=== PATIENT | male | born 1940 | race Hispanic/Latino ===

== ENCOUNTER 2019-12-08 10:18 | Inpatient (IN) | payer OTHER ==
[~2019-12-08] VITALS: Ht 172.7 cm; Wt 72.6 kg
--- OUTSIDE RECORDS SUMMARY | 2019-12-08 10:20 | XMS REPORT ---
Author Author [facility] Address Unknown Phone Unavailable Care Team Providers Care Director Patient Financial Services Name Role Phone Unavailable Unavailable Payers Payer Name Policy Type Policy Number Effective Date Expiration Date Problems This patient has no known problems. Allergies, Adverse Reactions, Alerts Allergy Name Allergy Type Status Severity Reaction(s) Onset Date Inactive Date Treating Clinician Comments No Known Allergies DA Active U 2018-06-09 00:00:00 Medications This patient has no known medications.
[2019-12-08] MEDS ORDERED: SODIUM CHLORIDE 0.9% 1000ML 1,000 ML IV STA (10:43)
[2019-12-08 11:13] LABS: BASOPHILS % 0.1 % (0.0-1.0); HEMATOCRIT 42.9 % (38.2-49.6); HEMOGLOBIN 14.7 g/dL (14.0-18.0); LYMPHOCYTES % 4.6 % (18.0-39.1); MEAN CORPUSCULAR HEMOGLOBIN 29.3 pg (28-32); MEAN CORPUSCULAR HGB CONC 34.3 g/dL (31-35); MEAN CORPUSCULAR VOLUME 85.6 fL (81-99); MONOCYTES # (AUTO) 1.3 (0.2-0.8); MONOCYTES % 6.2 % (4.4-11.3); NEUTROPHILS # (AUTO) 18.4 (2.1-6.9); NEUTROPHILS % 88.4 % (38.7-80.0); PLATELET COUNT 141 x10e3/uL (140-360); RED BLOOD COUNT 5.01 x10e6/uL (4.3-5.7)
[2019-12-08 11:32] LABS: ALBUMIN 2.6 g/dL (3.5-5.0); ALBUMIN/GLOBULIN RATIO 0.4 (0.8-2.0); ANION GAP 20.1 mmol/L (8-16); CALCIUM 9.8 mg/dL (8.4-10.2); CREATININE, SERUM 2.09 mg/dL (0.72-1.25); POTASSIUM 4.1 mmol/L (3.5-5.1)
--- NOTE | 2019-12-08 11:37 | Diagnostic Imaging Report ---
EXAMINATION: CHEST SINGLE (PORTABLE) COMPARISON: None INDICATION: ^cough, multiple falls ^[id number] ^1100 DISCUSSION: Frontal view of the chest obtained at 1112 hours. HEART AND MEDIASTINUM: The heart is normal in size. The aorta is tortuous with calcifications of the arch. LINES: None. LUNGS: The lungs are well inflated and clear. No pneumonia or pulmonary edema. PLEURA: No pleural effusion or pneumothorax. BONES AND SOFT TISSUES: Degenerative changes of the spine. No evidence of fracture or dislocation. The soft tissues are normal. IMPRESSION: No acute traumatic pathology. No acute cardiopulmonary process. Signed by: Dr. Kusum Brandt MD on 12/08/2019 11:34 AM
[2019-12-08 11:39] LABS: CREATINE KINASE MB 2.2 ng/mL (0-5.0)
[2019-12-08 11:44] LABS: INR 1.14; PROTHROMBIN TIME 15.3 seconds (11.9-14.5)
[2019-12-08 11:45] LABS: PARTIAL THROMBOPLASTIN TIME 26.9 seconds (23.8-35.5)
--- NOTE | 2019-12-08 12:14 | Diagnostic Imaging Report ---
Examination: CT head without contrast Clinical Indication: Frequent falls. Technique: Transaxial noncontrast images from the skull base through the vertex were obtained. Sagittal and coronal reformatted images were done. Dose modulation, iterative reconstruction, and/or weight based adjustment of the mA/kV was utilized to reduce the radiation dose to as low as reasonably achievable. Comparison: None. Findings: Scalp: No abnormalities. Bones: Intact. No fractures. No blastic or lytic lesions. Brain sulci: Appropriate for patient's age. Ventricles: Normal in size and configuration. No hydrocephalus. . Extra-axial space: No abnormalities. Parenchyma: There are mild confluent areas of low-attenuation within subcortical and periventricular white matter, nonspecific, but could represent microvascular ischemic disease. No masses, hemorrhage, or acute or chronic cortical based vascular insults. Suprasellar region: No abnormalities. Craniocervical junction: The foramen magnum is patent. No Chiari one malformation. Incidental findings: Partial opacification of the bilateral frontal and maxillary sinuses. Mild inflammatory mucosal thickening of bilateral sphenoid and ethmoid air cells. Impression: 1. No acute intracranial finding. 2. Mild chronic microvascular ischemic change. Signed by: Dr. Joie Levin M.D. on 12/08/2019 12:10 PM
--- NOTE | 2019-12-08 12:15 | Diagnostic Imaging Report ---
Examination: CT CERVICAL SPINE WO CONTRAST HISTORY:Neck pain injury after fall. COMPARISON:None. TECHNIQUE: Multidetector helical axial images were obtained without contrast from the foramen magnum to T1. Coronal and sagittal reformatted images were done. Bone and soft tissue windows were evaluated. Dose modulation, iterative reconstruction, and/or weight based adjustment of the mA/kV was utilized to reduce the radiation dose to as low as reasonably achievable. FINDINGS: Alignment:Normal alignment with straightening of normal lordosis. Vertebrae: Normal height and density. No acute fracture, infection or neoplasm. Disc space heights: Normal height. Caliber of spinal canal: Developmentally normal. Posterior fossa and craniocervical junction: Foramen magnum patent. No Chiari 1 malformation. Soft tissues: Dense atherosclerotic calcification of the bilateral carotid bifurcation. Degenerative changes: Anterior osteophytes from C3 through T1. Bilateral facet arthropathy from C2 through C7 No disc herniation or canal stenosis. Visualized lung apices: No abnormalities. IMPRESSION: 1. No acute abnormalities. 2. Degenerative changes as above. Signed by: Dr. Joie Levin M.D. on 12/08/2019 12:12 PM
[2019-12-08 12:24] LABS: BILIRUBIN,URINE SMALL (NEGATIVE); CLARITY,URINE SL CLOUDY (CLEAR); COLOR,URINE YELLOW (YELLOW); KETONES,URINE 1+ (NEGATIVE); LEUKOCYTE ESTERASE ,URINE NEGATIVE (NEGATIVE); NITRITE,URINE NEGATIVE (NEGATIVE); PROTEIN,URINE DIPSTICK 2+ (NEGATIVE); URINE UROBILINOGEN 1 mg/dL (0.2 - 1)
[2019-12-08] MEDS ORDERED: ONDANSETRON HCL INJ 2MG/ML 2ML 2 MG/ML VIAL IV PRN (12:45)
[2019-12-08] MEDS: SODIUM CHLORIDE 0.9% 1000ML 1,000 ML IV SCH ×3 (13:07→20:31)
[2019-12-08 13:17] LABS: BACTERIA,URINE FEW /HPF; MUCUS,URINE FEW (RARE)
[2019-12-08] MEDS: CEFTRIAXONE SOD 1 GM/NS 50 ML 50 ML IV SCH (13:19)
[2019-12-08] MEDS ORDERED: FAMOTIDINE 20 MG/2 ML VIAL IV SCH (13:30)
[2019-12-08] MEDS ORDERED: ARICEPT5 MG PO (13:37)
[2019-12-08] MEDS ORDERED: ATORVASTATIN CA20 MG PO (13:37)
[2019-12-08] MEDS ORDERED: DEXTROSE 50% SYRINGE 50 ML IV PRN (13:45)
[2019-12-08] MEDS ORDERED: SIMVASTATIN20 MG PO (13:56)
[2019-12-08] MEDS ORDERED: LANTUS 3ML100 UNITS/ SQ (13:56)
--- NOTE | 2019-12-08 14:00 | NUR ---
Received patient from ER to room 297, he is in stable condition. at bedside. Iv line to left forearm is patent. Admission history and initial physical assessment completed and documented. Patient and oriented to room and policies. Call light within reach. Bed in the lowest position. Bed alarm on.
[2019-12-08 14:01] VITALS: BP 157/94
[2019-12-08 14:02] VITALS: BP 157/94
[2019-12-08 14:13] VITALS: BP 157/94
[2019-12-08] MEDS ORDERED: PNEUMOCOCCAL VACCINE POLYVALENT 23 MCG/0.5 ML VIAL IM SCH (14:14)
[2019-12-08] MEDS ORDERED: INFLUENZA VIRUS VAC SPLIT INJ 0.5 ML SYR IM SCH (14:14)
[2019-12-08] MEDS: INSULIN LISPRO 100 UNIT/1 ML 3ML VIAL SQ SCH ×3 (14:30→20:30)
[2019-12-08 16:44] VITALS: BP 116/65
[2019-12-08] MEDS ORDERED: ACETAMINOPHEN/CODEINE 300MG - 30MG TAB PO PRN (18:30)
[2019-12-08] MEDS ORDERED: ACETAMINOPHEN 325 MG TAB PO PRN (18:30)
[2019-12-08] MEDS ORDERED: HYDRALAZINE HCL 20 MG/ML VIAL IV PRN (18:30)
--- NOTE | 2019-12-08 19:05 | NUR ---
Bedside shift report given to oncoming nurse. Patient is resting in bed. No acute distress noted. Call light within reach. Bed in the lowest position. Bed alarm on.
[2019-12-08 19:10] LABS: CREATINE KINASE MB 2.4 ng/mL (0-5.0)
[2019-12-08 20:00] VITALS: BP 115/75
[2019-12-08] MEDS: DONEPEZIL HCL 5 MG TAB PO SCH (20:29)
[2019-12-08] MEDS: SIMVASTATIN 20 MG TAB PO SCH (20:29)
[2019-12-08 22:15] VITALS: BP 115/75
[2019-12-09] VITALS (11 sets, daily range): BP systolic 109–181; BP diastolic 62–87
[2019-12-09] MEDS: CEFTRIAXONE SOD 1 GM/NS 50 ML 50 ML IV SCH ×2 (01:05→12:55)
[2019-12-09 03:39] LABS: HEMATOCRIT 37.9 % (38.2-49.6); HEMOGLOBIN 12.9 g/dL (14.0-18.0); LYMPHOCYTES # (AUTO) 1.5 (1.0-3.2); LYMPHOCYTES % 7.1 % (18.0-39.1); MEAN CORPUSCULAR HEMOGLOBIN 29.3 pg (28-32); MEAN CORPUSCULAR VOLUME 86.1 fL (81-99); MONOCYTES # (AUTO) 1.3 (0.2-0.8); MONOCYTES % 6.4 % (4.4-11.3); NEUTROPHILS # (AUTO) 18.1 (2.1-6.9); PLATELET COUNT 160 x10e3/uL (140-360); RED CELL DISTRIBUTION WIDTH 11.9 % (11.7-14.4)
[2019-12-09 04:07] LABS: CREATINE KINASE MB 3.6 ng/mL (0-5.0)
[2019-12-09 04:29] LABS: ALBUMIN 2.2 g/dL (3.5-5.0); ALBUMIN/GLOBULIN RATIO 0.5 (0.8-2.0); CREATININE, SERUM 1.53 mg/dL (0.72-1.25)
[2019-12-09 04:31] LABS: CALCIUM 8.2 mg/dL (8.4-10.2)
[2019-12-09 04:49] LABS: THYROID STIMULATING HORMONE 1.225 uIU/mL (0.350-4.940)
[2019-12-09 07:06] LABS: CREATINE KINASE MB 3.7 ng/mL (0-5.0)
[2019-12-09] MEDS: INSULIN LISPRO 100 UNIT/1 ML 3ML VIAL SQ SCH ×4 (07:30→20:14)
--- NOTE | 2019-12-09 07:35 | NUR ---
PATIENT IN BED RESTING WITH EYES CLOSED, NO DISTRESS NOTED. IV FLUID INFUSING ORDERED. BED IN LOWER POSITION, CALL LIGHT AT REACH.
[2019-12-09] MEDS: FAMOTIDINE 20 MG TAB PO SCH ×2 (07:45→16:30)
[2019-12-09] MEDS: MEGACE 400MG/ 10ML CUP PO SCH (09:14)
--- NOTE | 2019-12-09 09:48 | NUR ---
Nutrition Screen Note RD Recommendation for Physician: -Continue current diet per MD. -Encouraged intake of ONS. Plan of Care: RD following, monitoring for tolerance and adequacy. Glucerna TID- ordered by MD. Nutrition reason for involvement: (MD Consult-malnutrition) Primary Diagnose(s): Dehydration, falls PMH: DM Ht:68 in Wt: 160 lb BMI: 24.3kg/m2 IBW:[address] Assessment: (12/08): 79 YOM admitted for dehydration. Received consult for possible malnutrition. Spoke with the pt who reported his appetite has been poor for 1 week and he denied any recent unintentional weight loss. Pt denied N/V/C/D/chewing or swallowing issues as well as any food allergies. Pt appeared well-nourished. There are no past weights in EMR. Encouraged the pt to consume Glucerna supplement as tolerated, he reported he likes them. He also reported he would like to be woken up to receive his meals, he stated sometimes he is sleeping and when he wakes up to eat his meal, the meal is cold. He has reported this to staff. Reported to pt that microwaves should be available if he would like his food warmed up. Chart reviewed. Labs and meds reviewed. There is only on meal assessment percentage in FS-it is 50%. Will continue to monitor. Current Diet: 2400 ADA diet Malnutrition Evaluation (12/08) The patient does not meet criteria for a specified degree of malnutrition at this time. Will re-evaluate at follow-up as appropriate. Energy intake: <50% of estimated energy requirements for >5 days Weight loss: -pt reported no weight loss Fat loss: none Muscle loss: none Supporting Evidence: Fluid accumulation, unable to evaluate Functional Status: unable to evaluate Diet Education Needs Assessment: Diet education not indicated. Diet Adequacy: Not meeting calorie needs, Not meeting protein needs-reports of poor appetite, 50% of his meal consumed per FS, and MD ordered Glucerna supplement TID Nutrition Care Level: mod Signed: Lucille Song RD, LD
--- NOTE | 2019-12-09 11:10 | NUR ---
PATIENT NOT FOLLOWING DIRECTIONS. ASSISTED TO THE RESTROOM, REFUSE STAFF TO STAY CLOSE. RED CORD GIVEN TO PATIENT TO CALL WHEN FINISHED. HE DID NOT CALL AND JUST GOT UP AND WALKED OUT BY HIMSELF. ASSISTED BACK TO BED, CALL LIGHT AT REACH. BED ALARM ACTIVATED.
--- NOTE | 2019-12-09 12:13 | NUR ---
LEFT FACILITIES IN NETWORK LIST IN ROOM, CALLED [facility] [phone] LEFT VOICE MAIL TO RETURN CALL TO DISCUSS SNF OPTIONS.
[2019-12-09] MEDS: LORATADINE 10 MG TAB PO SCH (12:55)
--- NOTE | 2019-12-09 13:41 | Consultation ---
DATE OF CONSULTATION: Neurology Consultation HISTORY OF PRESENT ILLNESS: The patient is an 79-year-old gentleman, who comes to my attention for worsening dementia, weakness, and falls. The patient's is at the bedside. The patient is also unable to give any past medical history due to his clinical status. States in the last week, the patient has been eating less, taking his medication less, sleeping basically 20-24 hours a day, getting up and falling 7 times in 7 days and remaining delirious and confused with diminished responsiveness and cognitive status. REVIEW OF SYSTEMS: As per , increased fatigue, lethargy, decreased appetite, confusion, gait disturbance, weakness, etc., but otherwise the patient is not able to provide information. PHYSICAL EXAMINATION: VITAL SIGNS: At this time, temperature is 97.2, heart rate is 81, and blood pressure is 112/84. On admission, he was mildly tachy and blood pressure 181/87. GENERAL: The patient is arousable. He is awake. He is oriented x1. He knows himself, does not know the date or the location. Not sure about his situation. HEENT: His extraocular muscles intact. Pupils are reactive. His face is symmetric. He has no ptosis. No nuchal rigidity on exam. Trachea is midline. CARDIOVASCULAR: Regular rate and rhythm. PULMONARY: Clear. ABDOMEN: Soft and nontender. EXTREMITIES: He is able to move upper and lower extremities at least 4/5. Reflexes are diminished and toes are upgoing bilaterally. There is no apparent ataxia on exam. ASSESSMENT AND PLAN: I am seeing the patient for delirium, decompensation, and dementia. The patient does have a white blood cell count of 21. His other labs are relatively reassuring. His kidney function is little . His sodium is 133. His other labs, glucose, he is hyperglycemic. His A1c is 8.9. Liver function tests, largely normal. UA may be a little dirty with white blood cells, but no leukocyte esterase in the urine. dementia. CT scan is reassuring. Exam is nonfocal likely progression of chronic delirium with decompensation and possible dehydration secondary to decreased p.o. intake and poorly controlled diabetes. The patient's family case management assistance to perform placement. The patient is not able to be taking care of adequately at home. MD CORRINA MOSER/IVY /[id number]
--- NOTE | 2019-12-09 14:41 | NUR ---
WOUND CARE NURSE INITIAL EVALUATION. 79 YEAR OLD MALE ADMITTED TO [facility] WITH DX OF DEHYDRATION, LEUKOCYTOSIS AND RENAL INSUFFICIENCY. HEAD TO TOE SKIN ASSESSMENT PERFORMED TODAY. PT PRESENTS WITH HEALING ABRASIONS TO BILATERAL ELBOWS. NO S/S OF INFECTION. NO OTHER AREAS OF CONCERN NOTED TODAY. LABS: WBC: 21.01 HGBA1C: 8.9 GLUCOSE: 258 URINE AND BLOOD CX RESULTS ARE PENDING AT THIS TIME. RECOMMENDATIONS: REPOSITION PT EVERY TWO HOURS AND PRN. CONTINUE WITH ALTERNATING LOW AIR LOSS MATTRESS. LEAVE HEALING ABRASIONS TO BILATERAL ELBOWS OPEN TO AIR AND MONITOR DAILY. THANKS FOR THIS CONSULTATION. Addendum: 12/09/19 at 1453 by Annabel Castellanos RN Amended: Links added.
--- NOTE | 2019-12-09 14:51 | NUR ---
PATIENT OFF UNIT TO RADIOLOGY.
--- NOTE | 2019-12-09 15:10 | NUR ---
PATIENT BACK TO UNIT FROM RADIOLOGY.
--- NOTE | 2019-12-09 15:39 | Diagnostic Imaging Report ---
EXAM: CT Chest, Abdomen and Pelvis WITHOUT intravenous contrast INDICATION: Pneumonia, fall COMPARISON: None. TECHNIQUE: The chest, abdomen and pelvis were scanned utilizing a multidetector helical scanner from the thoracic inlet to the pubic symphysis without administration of IV contrast. Coronal and sagittal reformations were obtained. IV CONTRAST: None ORAL CONTRAST: Water COMPLICATIONS: None RADIATION DOSE: Total DLP: (DLP x 0.015 x size factor) mGy*cm Dose modulation, iterative reconstruction, and/or weight based adjustment of the mA/kV was utilized to reduce the radiation dose to as low as reasonably achievable. FINDINGS: LINES/ TUBES: None. LUNGS AND AIRWAYS: The central airways are patent. Scattered multifocal peripheral ground glass nodularity and tree-in-bud nodularity most notably at the right lower lobe, lingula and left lower lobe mild diffuse bronchial wall thickening. No focal consolidation. No pulmonary edema. PLEURA: The pleural spaces are clear. HEART AND MEDIASTINUM: The thyroid gland is normal. No mediastinal, hilar or axillary lymphadenopathy. The heart is normal in size.. There is no pericardial effusion. Diffuse atherosclerotic calcifications involve the aorta, proximal great vessels, and coronary arteries. HEPATOBILIARY: No focal liver lesions. No biliary ductal dilation. The gallbladder is distended, measuring up to 4.6 cm in diameter. Dependent calcified gallstones. No CT evidence of cholecystitis. SPLEEN: No splenomegaly. PANCREAS: No focal masses or ductal dilatation. ADRENALS: Nodular thickening of both adrenal glands without focal discrete nodule. KIDNEYS/URETERS: A 1.6 cm exophytic lesion at the upper pole of left kidney and 2.7 cm exophytic lesion at the midpole of the left kidney are indeterminate by density (25-30 HU) and may represent dense cysts versus renal neoplasm. 3 mm left upper pole renal calculus. No hydronephrosis or hydroureter. Mild right greater than left nonspecific perinephric fat stranding. PELVIC ORGANS/BLADDER: No bladder mass or calculi. Mild bladder wall thickening. The prostate is enlarged, measuring up to 5.1 x 5.4 x 5.7 cm (TR x AP x SI) with volume estimate of 81cc. PERITONEUM / RETROPERITONEUM: No free air or fluid. LYMPH NODES: No lymphadenopathy. VESSELS: Diffuse atherosclerotic calcifications of the nonaneurysmal abdominal aorta and major branches. GI TRACT: No abnormal bowel thickening. No bowel obstruction. Normal appendix. BONES AND SOFT TISSUES: No acute osseous injury. No suspicious lytic or blastic lesions. IMPRESSION: Scattered multifocal peripheral groundglass nodularity and tree-in-bud nodularity most notably in the right lower lobe, lingula and left lower lobe are likely infectious/inflammatory in etiology and may be related to aspiration. Cholelithiasis of the mildly distended gallbladder. No specific CT evidence of cholecystitis. Exophytic lesions of the upper pole (1.6cm) and mid pole of the left kidney (2.7cm) are indeterminate by density on this noncontrast CT and could represent dense cysts versus renal neoplasm. Recommend follow-up examination with renal mass protocol CT or MRI for further evaluation. Mild bladder wall thickening can be seen in the setting of cystitis. Prostatomegaly to 5.1 x 5.4 x 5.7 cm with volume estimate of 81 cc. Signed by: Johnny Ocampo MD on 12/09/2019 3:37 PM
--- NOTE | 2019-12-09 16:00 | NUR ---
SPOKE WITH FINANCIAL PLANNING ASSISTANT REGARDING ABNORMAL LAB RESULT. NO NEW ORDER RECEIVED.
[2019-12-09] MEDS ORDERED: GUAIFENESIN 600MG/DEXTROMETHORPHAN 30MG TABSR PO PRN (17:30)
[2019-12-09] MEDS ORDERED: ALBUTEROL/IPRATROPIUM 3 ML NEB NEB PRN (17:30)
[2019-12-09] MEDS: AZITHROMYCIN 500MG/NS 250 ML 250 ML IV SCH (18:42)
--- NOTE | 2019-12-09 19:10 | NUR ---
BEDSIDE SHIFT REPORT GIVEN TO ON COMING NURSE.
[2019-12-09] MEDS: SIMVASTATIN 20 MG TAB PO SCH (20:19)
[2019-12-09] MEDS: DONEPEZIL HCL 5 MG TAB PO SCH (20:19)
[2019-12-09] MEDS: ALBUTEROL/IPRATROPIUM 3 ML NEB NEB SCH (22:10)
[2019-12-10] VITALS (8 sets, daily range): BP systolic 98–155; BP diastolic 52–75
[2019-12-10] MEDS: CEFTRIAXONE SOD 1 GM/NS 50 ML 50 ML IV SCH ×2 (01:00→13:33)
[2019-12-10] MEDS: ALBUTEROL/IPRATROPIUM 3 ML NEB NEB SCH ×4 (01:02→19:48)
[2019-12-10 06:15] LABS: BASOPHILS % 0.1 % (0.0-1.0); HEMATOCRIT 34.7 % (38.2-49.6); HEMOGLOBIN 11.5 g/dL (14.0-18.0); LYMPHOCYTES # (AUTO) 1.5 (1.0-3.2); LYMPHOCYTES % 11.1 % (18.0-39.1); MEAN CORPUSCULAR HEMOGLOBIN 29.1 pg (28-32); MEAN CORPUSCULAR HGB CONC 33.1 g/dL (31-35); MEAN CORPUSCULAR VOLUME 87.8 fL (81-99); MONOCYTES # (AUTO) 1.1 (0.2-0.8); MONOCYTES % 7.9 % (4.4-11.3); NEUTROPHILS # (AUTO) 10.7 (2.1-6.9); NEUTROPHILS % 80.3 % (38.7-80.0); PLATELET COUNT 158 x10e3/uL (140-360); RED BLOOD COUNT 3.95 x10e6/uL (4.3-5.7)
[2019-12-10] MEDS ORDERED: NON-FORMULARY MEDICATION (Insulin Glargine (Lantus 3ML Pen) 50 UNITS) SQ SCH (09:00)
[2019-12-10] MEDS: INSULIN GLARGINE 100 UNITS/ML VIAL SQ SCH (09:00)
[2019-12-10] MEDS: LORATADINE 10 MG TAB PO SCH (09:32)
[2019-12-10] MEDS: MEGACE 400MG/ 10ML CUP PO SCH (09:32)
[2019-12-10] MEDS: FAMOTIDINE 20 MG TAB PO SCH ×2 (09:33→17:24)
[2019-12-10] MEDS: INSULIN LISPRO 100 UNIT/1 ML 3ML VIAL SQ SCH ×4 (09:43→20:43)
--- NOTE | 2019-12-10 13:21 | Consultation ---
DATE OF CONSULTATION: 12/10/2019 Urology Consultation REASON FOR CONSULTATION: Renal lesions. HISTORY OF PRESENT ILLNESS: Chepe Lowry is an 79-year-old man, who has had progressive Alzheimer disease for the last nine years. The patient was admitted with sepsis and positive blood cultures that were present on admission. Urological consultation was sought due to the fact that the patient had renal lesions noted on CT. The patient has a diaper on for unknown reasons, presumably because he forgets to go and void as needed. He has belligerence with his dementia and his is having an extremely difficult time handling him, feeding him and he has had numerous falls and needs placement into a facility. He has never seen a urologist. He has never had urolithiasis nor urinary tract infections. PAST MEDICAL AND SURGICAL HISTORY: 1. Diabetes mellitus. 2. Hypertension. 3. Hypercholesterolemia. 4. Alzheimer disease. ALLERGIES: NONE KNOWN. CURRENT MEDICATIONS: Please refer to the MAR. 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 He smoked up to two to two and half packs per day, but he does not smoke any longer. He has a very supportive at the bedside. FAMILY HISTORY: Noncontributory to the active urological problems. REVIEW OF SYSTEMS: Consistent with above history of present illness. PAST MEDICAL HISTORY: Includes current admission for pneumonia. Positive for possible pneumonia. PHYSICAL EXAMINATION: GENERAL: Elderly male, lying in bed, in no apparent distress. VITAL SIGNS: He is currently afebrile. Vital signs currently stable. ABDOMEN: Soft, nondistended, nontender without costovertebral angle tenderness. Kidneys not palpable without hepatosplenomegaly. No obvious evidence of hernia. GENITOURINARY: Testes descended bilaterally. Testes and epididymides bilaterally palpably normal. The patient has a normal uncircumcised male phallus with normal meatus without any lesion. RECTAL: Digital rectal examination is deferred at the present time. For the remaining physical examination systems, please refer to the admission history and physical on the chart. LABORATORY STUDIES: Blood cultures are positive x2. Urine culture is negative. White blood cell count is 13,370, hemoglobin 11.5, and platelets 158,000. Sodium is low at 133, creatinine is 1.53, was higher than that at 2.09 upon admission. Calcium is low at 8.2. Urinalysis significant for 11-20 RBCs, 6-10 WBCs, protein urine glycosuria. CT scan of the abdomen and pelvis revealed cholelithiasis with mildly distended gallbladder. Two exophytic lesions in the left kidney 1.6 and 2.7 cm and there was a 3 mm left upper pole stone without any hydronephrosis. The patient had enlarged prostate measuring [address] ASSESSMENT: 1. Left nephrolithiasis. 2. Left renal lesions. 3. Benign prostatic hyperplasia. 4. Gallstones. 5. Leukocytosis. 6. Anemia. 7. Hyponatremia. 8. Presumably acute renal failure. 9. Hypercalcemia. 10. Microhematuria. 11. Urinary tract infection versus pyuria with negative culture. 12. Proteinuria. 13. Glycosuria. PLAN: 1. I will order a renal ultrasound to follow up on the lesions. 2. Discharge planning per primary team. 3. Follow up in the office in about a month following discharge from the hospital. 4. Ongoing urological followup. 5. Defer the hematological and electrolyte abnormalities to the primary team. Thank you much for involving us in care of your patient. We will be happy to follow along with you as well as an outpatient. Adarsh MD [place]/MODL /[id number] cc: Khadar Lopez DO
--- NOTE | 2019-12-10 13:30 | NUR ---
addiction social worker , correctional casework specialist spoke with pt .
--- NOTE | 2019-12-10 15:41 | NUR ---
awake and calm no acute complains PHYSICAL EXAMINATION: VITAL SIGNS: 96.8 113 142/68 GENERAL: He is awake. He is oriented x1. He knows himself, does not know the date or the location. Not sure about his situation. HEENT: His extraocular muscles intact. Pupils are reactive. His face is symmetric. He has no ptosis. No nuchal rigidity on exam. Trachea is midline. CARDIOVASCULAR: Regular rate and rhythm. PULMONARY: Clear. ABDOMEN: Soft and nontender. EXTREMITIES: He is able to move upper and lower extremities at least 4/5. Reflexes are diminished and toes are upgoing bilaterally. There is no apparent ataxia on exam. ASSESSMENT AND PLAN: I am seeing the patient for delirium, decompensation, and dementia. hx of dementia w/ reasurring diagnostics dementia w decompensation and possible dehydration secondary to decreased p.o. intake and poorly controlled diabetes. supportiv ecare and placement outpt eeg and neurocog workup
--- NOTE | 2019-12-10 16:06 | NUR ---
CALLED [facility] [phone] AND SPOKE WITH LO. SHE WAS ABLE TO LET ME KNOW THE PT DOES NOT HAVE C[facility] BENEFITS [facility]OUGH [facility], ONLY THE SKILLED PORTION FOR ABX AND THERAPY TREATMENTS. (WHICH IS COVERED AT 100%). FOR SNF FACILITIES THE ONES IN NETWORK FOR OUR ARE[facility] ARE [facility], [facility], [facility], [facility], [facility], [facility], [facility] AND [facility]. IF THE PT REQUIRES CARE [facility]ORY CARE [facility] BUT THEY WILL LOOSE THEIR USFHP. CALLED TO TELL HER ALL THIS INFORMATION, LEFT VOICE MAIL AND ALERTED CM TO SITUATION.
--- NOTE | 2019-12-10 16:28 | Diagnostic Imaging Report ---
HISTORY: ^EVALUATE L RENAL MASSES AND COMPARE TO CT ^[id number] ^1510 COMPARISON: CT 12/09/2019. TECHNIQUE: Grayscale and color spectral Doppler ultrasound of the kidneys and bladder. FINDINGS: The right kidney measures 11.5 x 5.6 x 5.2 cm. Cortical thickness measures 1.4 cm. No sonographically evident mass or hydronephrosis. Renal artery and vein are patent. The left kidney measures 12.6 x 5.5 x 4.7 cm. Cortical thickness measures 1.4 cm. No sonographically evident mass or hydronephrosis. Multiple subcentimeter echogenic likely nonobstructing stones. Upper pole exophytic 2.9 x 1.2 x 1.7 cm hypoechoic/anechoic lesion and mid pole 2.2 x 2.5 x 2.8 cm anechoic lesion. Renal artery and vein are patent. Bladder: Unremarkable. Enlarged prostate. IMPRESSION : 1. Left renal hypoechoic/anechoic lesions corresponding to those seen on the prior CT are incompletely evaluated and may represent cysts. However, neoplasm cannot be excluded. Recommend follow-up examination with renal mass protocol CT or MRI for further evaluation. 2. Nonobstructing left renal stones. Signed by: Jens Kimble MD on 12/10/2019 4:25 PM
[2019-12-10] MEDS: AZITHROMYCIN 500MG/NS 250 ML 250 ML IV SCH (17:24)
--- NOTE | 2019-12-10 19:30 | NUR ---
Report given to oncoming nurse, walking rounds complete. Pt stable at this time.
--- NOTE | 2019-12-10 20:13 | NUR ---
Prince Duffy ordered to d/c tele. Patient refused to place it on.
[2019-12-10] MEDS: DONEPEZIL HCL 5 MG TAB PO SCH (20:42)
[2019-12-10] MEDS: SIMVASTATIN 20 MG TAB PO SCH (20:42)
[2019-12-11] VITALS (8 sets, daily range): BP systolic 105–149; BP diastolic 53–70
[2019-12-11] MEDS: CEFTRIAXONE SOD 1 GM/NS 50 ML 50 ML IV SCH ×2 (00:33→12:39)
[2019-12-11] MEDS: ALBUTEROL/IPRATROPIUM 3 ML NEB NEB SCH ×5 (01:35→23:30)
[2019-12-11 06:09] LABS: BASOPHILS % 0.2 % (0.0-1.0); EOSINOPHILS % 0.3 % (0.0-6.0); HEMATOCRIT 34.9 % (38.2-49.6); HEMOGLOBIN 11.8 g/dL (14.0-18.0); LYMPHOCYTES # (AUTO) 1.3 (1.0-3.2); LYMPHOCYTES % 11.6 % (18.0-39.1); MEAN CORPUSCULAR HEMOGLOBIN 29.3 pg (28-32); MEAN CORPUSCULAR HGB CONC 33.8 g/dL (31-35); MEAN CORPUSCULAR VOLUME 86.6 fL (81-99); MONOCYTES % 8.7 % (4.4-11.3); NEUTROPHILS # (AUTO) 8.7 (2.1-6.9); NEUTROPHILS % 78.7 % (38.7-80.0); PLATELET COUNT 160 x10e3/uL (140-360); RED BLOOD COUNT 4.03 x10e6/uL (4.3-5.7); RED CELL DISTRIBUTION WIDTH 12.1 % (11.7-14.4)
--- NOTE | 2019-12-11 06:19 | NUR ---
Dr. Damaris Hernandez notified of this consultation.
[2019-12-11 06:32] LABS: ANION GAP 13.5 mmol/L (8-16); CALCIUM 8.3 mg/dL (8.4-10.2); CREATININE, SERUM 1.29 mg/dL (0.72-1.25); MAGNESIUM 1.5 MG/DL (1.3-2.1); PHOSPHORUS 2.5 MG/DL (2.3-4.7); POTASSIUM 3.5 mmol/L (3.5-5.1)
--- NOTE | 2019-12-11 07:00 | NUR ---
received bedside report. pt is sleeping, no s/s of distress. call light within reach and bed alarm is on
[2019-12-11] MEDS: INSULIN LISPRO 100 UNIT/1 ML 3ML VIAL SQ SCH ×4 (07:30→20:32)
[2019-12-11] MEDS: INSULIN GLARGINE 100 UNITS/ML VIAL SQ SCH (09:00)
[2019-12-11] MEDS: MEGACE 400MG/ 10ML CUP PO SCH (09:08)
[2019-12-11] MEDS: LORATADINE 10 MG TAB PO SCH (09:09)
[2019-12-11] MEDS: FAMOTIDINE 20 MG TAB PO SCH ×2 (09:09→17:10)
--- NOTE | 2019-12-11 10:33 | Consultation ---
DATE OF CONSULTATION: Pulmonary Critical Care Consultation CHIEF COMPLAINT: Malaise and frequent falling. HISTORY OF PRESENT ILLNESS: The patient is an 79-year-old man. He came to the emergency department because of multiple falls and decreased appetite. He also had generalized weakness. He denies fevers. He did have some mild cough. He was seen in the ER and found to have an elevated blood sugar of 297 along with an elevated white blood cell count. The patient received IV fluids along with IV antibiotics. He reports some improvement. PAST MEDICAL HISTORY: 1. Organic brain syndrome. 2. Diabetes. PAST SURGICAL HISTORY: Not obtainable. FAMILY HISTORY: History of diabetes and cardiac disease. SOCIAL HISTORY: The patient quit smoking over 25 years ago. He quit drinking many, many years ago. ALLERGIES: THERE ARE NO KNOWN DRUG ALLERGIES. REVIEW OF SYSTEMS: The patient is afebrile. The patient has no headache. He has no neck pain. He does report some cough. He denies chest pain or dyspnea. He is not having abdominal pain. There is no nausea or vomiting. He has no leg edema. He does have some confusion, but this apparently is baseline. PHYSICAL EXAMINATION: VITAL SIGNS: Blood pressure is 149/70 and the saturation is 97% on room air. The pulse is 80. HEENT: No facial swelling or erythema. CARDIAC: Regular rate and rhythm with a normal S1, S2. LUNGS: Auscultation of lungs reveals clear breath sounds bilaterally. There is no wheezing. ABDOMEN: Soft, nontender. There is no rebound or guarding. EXTREMITIES: No leg edema or calf tenderness. There is no cyanosis clubbing. SKIN: No rashes. NEUROLOGIC: Some confusion, but no focal abnormalities. LABORATORY DATA: White blood cell count is 11, hemoglobin is 11.8, and the platelet count is 160. The BUN to creatinine ratio is 19 to 1.3. The blood sugar is 175-215. Urinalysis shows 6-10 white blood cells. RADIOGRAPHIC DATA: CT scan of the chest shows scattered multifocal peripheral ground-glass nodularity and tree-in-bud nodularity mostly in the right lower lobe. IMPRESSION: 1. Aspiration pneumonia with sepsis, present on admission. 2. Diabetes, out of control. 3. Metabolic encephalopathy. 4. Renal abnormality of unclear etiology. PLAN: 1. Continue current IV antibiotics. 2. Monitor and control blood sugars. 3. Neurology evaluation. 4. Speech therapy evaluation. 5. Physical therapy. MD MARNIE Gonzalez/IVY /[id number]
--- NOTE | 2019-12-11 14:10 | NUR ---
SPOKE WITH ABOUT CONVERSATIONS YESTERDAY, ALL WE CAN SET UP AT THIS TIME IS THE SHORT TERM SKILLED STAY, EDUCATED HER THAT SHE [facility] BEN[facility] SO THAT HE CAN GET GROUP HOME CARE. SHE SIGNED CHOICE FOR [facility], FILED IN CHART, COMPLETED PASRR AND FAXED TO FACILITY. COMPLETED RTF AND PUT ON PACKET AT NURSES STATION.
--- NOTE | 2019-12-11 19:23 | NUR ---
Received change of shift report from AM nurse. Walking rounds completed.
[2019-12-11] MEDS: AZITHROMYCIN 500MG/NS 250 ML 250 ML IV SCH (19:24)
[2019-12-11] MEDS: DONEPEZIL HCL 5 MG TAB PO SCH (20:32)
[2019-12-11] MEDS: SIMVASTATIN 20 MG TAB PO SCH (20:32)
[2019-12-12] VITALS: BP 137/63
[2019-12-12] MEDS: CEFTRIAXONE SOD 1 GM/NS 50 ML 50 ML IV SCH ×2 (00:15→13:00)
[2019-12-12 04:00] VITALS: BP 110/55
--- NOTE | 2019-12-12 04:24 | NUR ---
Patient resting quitly with no c/o at this time. Continue monitor.
--- NOTE | 2019-12-12 04:55 | NUR ---
Restarted IV 20G to left hand x1 stick. Patient pulled out prior IV. Patient tolerated well. Wrapped with kerlex.
[2019-12-12 06:02] LABS: BASOPHILS % 0.1 % (0.0-1.0); EOSINOPHILS % 0.1 % (0.0-6.0); HEMATOCRIT 30.8 % (38.2-49.6); HEMOGLOBIN 10.4 g/dL (14.0-18.0); LYMPHOCYTES # (AUTO) 1.1 (1.0-3.2); LYMPHOCYTES % 10.2 % (18.0-39.1); MEAN CORPUSCULAR HEMOGLOBIN 29.6 pg (28-32); MEAN CORPUSCULAR HGB CONC 33.8 g/dL (31-35); MEAN CORPUSCULAR VOLUME 87.7 fL (81-99); MONOCYTES % 9.1 % (4.4-11.3); NEUTROPHILS # (AUTO) 8.4 (2.1-6.9); PLATELET COUNT 163 x10e3/uL (140-360); RED BLOOD COUNT 3.51 x10e6/uL (4.3-5.7); RED CELL DISTRIBUTION WIDTH 12.3 % (11.7-14.4)
[2019-12-12 06:35] LABS: ALBUMIN/GLOBULIN RATIO 0.5 (0.8-2.0); ANION GAP 11.5 mmol/L (8-16); CALCIUM 8.2 mg/dL (8.4-10.2); CREATININE, SERUM 1.58 mg/dL (0.72-1.25); POTASSIUM 3.5 mmol/L (3.5-5.1)
[2019-12-12] MEDS: ALBUTEROL/IPRATROPIUM 3 ML NEB NEB SCH ×2 (07:01→13:28)
[2019-12-12 08:00] VITALS: BP 133/59
--- NOTE | 2019-12-12 08:37 | NUR ---
awake and calm no acute complains PHYSICAL EXAMINATION: VITAL SIGNS: 97.3 95 137/64 GENERAL: He is awake. He is oriented x1. He knows himself, does not know the date or the location. Not sure about his situation. HEENT: His extraocular muscles intact. Pupils are reactive. His face is symmetric. He has no ptosis. No nuchal rigidity on exam. Trachea is midline. CARDIOVASCULAR: Regular rate and rhythm. PULMONARY: Clear. ABDOMEN: Soft and nontender. EXTREMITIES: He is able to move upper and lower extremities at least 4/5. Reflexes are diminished and toes are upgoing bilaterally. There is no apparent ataxia on exam. ASSESSMENT AND PLAN: I am seeing the patient for delirium, decompensation, and dementia. hx of dementia w/ reasurring diagnostics dementia w decompensation and possible dehydration secondary to decreased p.o. intake and poorly controlled diabetes. supportiv ecare and placement outpt eeg and neurocog workup
[2019-12-12] MEDS: LORATADINE 10 MG TAB PO SCH (08:56)
[2019-12-12] MEDS: MEGACE 400MG/ 10ML CUP PO SCH (08:56)
[2019-12-12] MEDS: FAMOTIDINE 20 MG TAB PO SCH (08:56)
[2019-12-12 09:02] VITALS: BP 133/59
--- NOTE | 2019-12-12 10:35 | NUR ---
USP FACILITY DISCHARGE INFORMATION PATIENT HAS BEEN ACCEPTED TO: NAME: [facility] ADDRESS:[id number] [facility] ACCEPTING PAPER BALING MACHINE OPERATOR: BONNY DAILY MD: MIR ROOM: 109 NURSE CALL REPORT TO: [phone] IMM SIGNED AND OBTAINED (if applicable): NA THE FOLLOWING DOCUMENTS MUST ACCOMPANY PATIENT FOR TRANSFER: COPIED CHART: PACKET
--- NOTE | 2019-12-12 10:36 | NUR ---
SPOKE WITH [facility] REP THAT CALLED ME BACK AND GAVE INSTRUCTIONS FOR TO FOLLOW TO GET PT QUALIFIED FOR BENEFITS CALL MAIN NUMBER AT [phone] GET AN FOOD PREPARER AND ASK FOR ELIGIBILITY AND BENEFITS ANS HAVE RUN INFORMATION VIA PHONE TO GET QUALIFIED. LEFT TYPED OUT INSTRUCTIONS IN ROOM AND CALLED AND LET KNOW.
[2019-12-12] MEDS: INSULIN GLARGINE 100 UNITS/ML VIAL SQ SCH (10:54)
[2019-12-12] MEDS: INSULIN LISPRO 100 UNIT/1 ML 3ML VIAL SQ SCH ×2 (10:54→13:01)
[2019-12-12] MEDS ORDERED: CEFDINIR300 MG PO (11:54)
[2019-12-12] MEDS ORDERED: LORATADINE10 MG PO (11:54)
[2019-12-12] MEDS ORDERED: ZITHROMAX500 MG PO (11:54)
[2019-12-12] MEDS ORDERED: Megestrol Acetate PO (11:54)
[2019-12-12] MEDS ORDERED: MUCINEX DM ER1 EACH PO (11:54)
[2019-12-12 11:58] VITALS: BP 138/70
[2019-12-12] MEDS ORDERED: SODIUM CHLORIDE 0.9% 500ML 500 ML IV ONE (12:00)
--- NOTE | 2019-12-12 12:00 | NUR ---
report called to [facility] AT [facility]
--- NOTE | 2019-12-12 12:07 | Progress Note ---
DATE: SUBJECTIVE: The patient feels much better. He is more alert and is conversing well. He does not complain of cough or congestion. PHYSICAL EXAMINATION: VITAL SIGNS: The patient is afebrile. The blood pressure is 133/59 and the pulse is 104. Saturation is 95%. HEENT: Shows no facial swelling or erythema. CARDIAC: Reveals a regular rate and rhythm with normal S1 and S2. LUNGS: Auscultation of lungs reveals rhonchorous breath sounds bilaterally. There is no wheezing. ABDOMEN: Soft and nontender. There is no rebound or guarding. EXTREMITIES: Shows no leg edema or calf tenderness. There is no cyanosis or clubbing. SKIN: Shows no rashes. NEUROLOGICAL: Shows no focal abnormalities. LABORATORY DATA: White blood cell count is 10.5 and hemoglobin is 10.4. The platelet count is 163. BUN to creatinine ratio is 20 to 1.59. The blood sugar is 200 to 300. Albumin is 2.0. IMPRESSION: 1. Acute kidney injury with increased creatinine of 1.58 today. 2. Aspiration pneumonia with sepsis, present on admission. 3. Diabetes out of control. 4. Metabolic encephalopathy. 5. Possible renal mass. PLAN: 1. Continue current antibiotics. 2. IV hydration and repeat creatinine. 3. Continue to monitor and control blood sugars. 4. Out of bed as tolerated. Sharad Hernandez MD [facility] /[id number]
[2019-12-12] MEDS ORDERED: ONDANSETRON HCL 4 MG ORAL DISINTEGRATING TAB PO PRN (13:30)
--- NOTE | 2019-12-13 07:27 | Discharge Summary ---
ADMISSION DIAGNOSES: Ambulatory dysfunction with multiple falls; LUCAS; urinary tract infection, present on admission; Alzheimer's dementia; type 2 diabetes; and hyperlipidemia. DISCHARGE DIAGNOSES: Ambulatory dysfunction with multiple falls; LUCAS; urinary tract infection, present on admission; Alzheimer's dementia; type 2 diabetes; hyperlipidemia; pneumonia, present on admission; plus rule out urinary tract infection. HISTORY: Type 2 diabetes, hyperlipidemia, Alzheimer's dementia. SURGICAL HISTORY: None. FAMILY HISTORY: The patient's mom had diabetes and cancer. SOCIAL HISTORY: The patient has a history of drinking one-fifth pint of vodka for 15 years every day and he quit smoking cigarettes in 1999. HOSPITAL COURSE: An 79-year-old male admits multiple falls, eight in the past week, decreased appetite and p.o. intake. The called 911 reporting generalized weakness. On admission, chest x-ray was negative. CT of the C-spine was also negative. CT of the brain showed no acute intracranial finding, mild chronic microvascular ischemic change. CT of the chest was done, which showed scattered multifocal peripheral ground glass nodularity and tree-in-bud nodularity most notably in the right lower lobe, lingula, and the left lower lobe. Cholelithiasis with mildly dilated gallbladder. No evidence of cholecystitis. Lesion of the left kidney, which could represent cyst versus renal neoplasm. Urology was consulted due to the lesion of the kidney. They ordered ultrasound, which showed a left renal hypoechoic lesion corresponding to those seen on the prior CT, which may represent cyst, however, neoplasm cannot be excluded. Nonobstructing left renal stone. Urine culture came back negative. Due to the pneumonia, the patient was started on Zithromax and Rocephin. The patient's white count trended down and the AMS resolved. The [facility] will [facility] to [facility] per 's recommendation as well as physical therapy. He will be given Zithromax, Omnicef, Mucinex, Claritin, and Megace. He will continue his home medicine with followup with primary care in 1 to 2 weeks. The patient and understand discharge instructions and agrees to plan. Vital signs stable, the patient afebrile. Dictated by Tiffany Barker, SEDA Frank Posada MD [facility]/MODL /[id number]
== END 2019-12-12 16:18 | DRG 871 ==
LOC: ER 10:18 → ERHOLD 12:43 → MED/SURG3 13:30 → OBSVTOIN 12-10 15:37
PROVIDERS: ADMIT Internal Medicine; ATTEND Internal Medicine
DX: A41.9 Sepsis, unspecified organism (principal); J69.0 Pneumonitis due to inhalation of food and vomit; G93.41 Metabolic encephalopathy; N17.9 Acute kidney failure, unspecified; N39.0 Urinary tract infection, site not specified; E87.1 Hypo-osmolality and hyponatremia; F05 Delirium due to known physiological condition; F02.81 Dementia in other diseases classified elsewhere, unspecified severity, with behavioral disturbance; N20.0 Calculus of kidney; Z91.81 History of falling; R05 Cough; F09 Unspecified mental disorder due to known physiological condition; E78.00 Pure hypercholesterolemia, unspecified; K80.80 Other cholelithiasis without obstruction; N40.0 Benign prostatic hyperplasia without lower urinary tract symptoms; R31.29 Other microscopic hematuria; E86.0 Dehydration; G30.9 Alzheimer's disease, unspecified; N28.1 Cyst of kidney, acquired
CPT/HCPCS: 36415; 70450; 71045; 71250; 72125; 74176; 76770; 80048; 80053; 81001; 82140; 82550; 82553; 82607; 82948; 83036; 83735; 83880; 84100; 84443; 84484; 85025; 85610; 85730; 87040; 87071; 87086; 87186; 87205; 93005; 93306; 94640; 96360; 97139; 99285; G0378; J0456; J0696; J7030; J7040

== ENCOUNTER 2024-08-13 16:44 | Inpatient (IN) | payer OTHER ==
[~2024-08-13] VITALS: Ht 172.7 cm; Wt 78.9 kg
[~2024-08-13 16:44] MED LIST: ARICEPT5 MG PO; ATORVASTATIN CA20 MG PO; CEFDINIR300 MG PO; LANTUS 3ML100 UNITS/ SQ; LORATADINE10 MG PO; MUCINEX DM ER1 EACH PO; Megestrol Acetate PO; SIMVASTATIN20 MG PO; ZITHROMAX500 MG PO
[2024-08-13 17:54] VITALS: TEMP 98.4
[2024-08-13 18:25] LABS: BASOPHILS % 0.1 % (0.0-1.0); EOSINOPHILS # (AUTO) 0.1 (0.0-0.4); EOSINOPHILS % 0.3 % (0.0-6.0); HEMATOCRIT 32.4 % (38.2-49.6); HEMOGLOBIN 10.7 g/dL (14.0-18.0); LYMPHOCYTES # (AUTO) 1.2 (1.0-3.2); LYMPHOCYTES % 6.7 % (18.0-39.1); MEAN CORPUSCULAR HEMOGLOBIN 30.7 pg (28-32); MEAN CORPUSCULAR VOLUME 92.8 fL (81-99); MONOCYTES # (AUTO) 1.4 (0.2-0.8); MONOCYTES % 7.7 % (4.4-11.3); NEUTROPHILS # (AUTO) 15.6 (2.1-6.9); NEUTROPHILS % 83.6 % (38.7-80.0); PLATELET COUNT 133 x10e3/uL (140-360); RED BLOOD COUNT 3.49 x10e6/uL (4.3-5.7); RED CELL DISTRIBUTION WIDTH 13.1 % (11.7-14.4); WHITE BLOOD COUNT 18.63 x10e3/uL (4.8-10.8)
[2024-08-13 18:32] LABS: BILIRUBIN,URINE NEGATIVE (NEGATIVE); CLARITY,URINE SL CLOUDY (CLEAR); COLOR,URINE AMBER (YELLOW); GLUCOSE, URINE 1+ (NEGATIVE); KETONES,URINE NEGATIVE (NEGATIVE); LEUKOCYTE ESTERASE ,URINE NEGATIVE (NEGATIVE); NITRITE,URINE NEGATIVE (NEGATIVE); PH,URINE 5.5 (5 - 7); PROTEIN,URINE DIPSTICK 2+ (NEGATIVE); URINE UROBILINOGEN 0.2 mg/dL (0.2 - 1)
[2024-08-13 18:38] LABS: ALBUMIN 2.9 g/dL (3.5-5.0); ALBUMIN/GLOBULIN RATIO 0.8 (0.8-2.0); ANION GAP 13.9 mmol/L (8-16); BILIRUBIN,TOTAL 1.6 mg/dL (0.2-1.2); CALCIUM 8.6 mg/dL (8.4-10.2); CREATININE, SERUM 3.62 mg/dL (0.72-1.25); POTASSIUM 3.9 mmol/L (3.5-5.1); TOTAL PROTEIN 6.5 g/dL (6.5-8.1)
[2024-08-13 18:44] LABS: TROPONIN I 0.08 ng/mL (0-0.300)
[2024-08-13 18:45] LABS: AMORPHOUS SEDIMENT,URINE MODERATE (FEW); BACTERIA,URINE FEW /HPF; RBC,URINE 0-5 /HPF (0-5); WBC,URINE (MAN) 0-5 /HPF (0-5)
[2024-08-13] MEDS ORDERED: SODIUM CHLORIDE 0.9% 1000ML 1,000 ML IV SCH (19:15)
[2024-08-13 20:05] VITALS: PULSE 89; RESP 18; O2SAT 99
[2024-08-13] MEDS: SODIUM CHLORIDE 0.9% 1000ML 1,000 ML IV SCH (20:30)
[2024-08-13 21:57] VITALS: PULSE 95; RESP 18
[2024-08-13 23:10] VITALS: BP 136/63; PULSE 89; RESP 21; TEMP 98.1; O2SAT 99
[2024-08-13 23:30] VITALS: BP 136/63; PULSE 89; RESP 21; TEMP 98.1; O2SAT 99
[2024-08-14] VITALS (9 sets, daily range): BP systolic 113–165; BP diastolic 54–77; PULSE 82–101; RESP 18–22; TEMP 98–98.5; O2SAT 96–99
[2024-08-14] MEDS: LORAZEPAM INJ 2 MG/ML VIAL IV PRN (01:20)
[2024-08-14] MEDS ORDERED: INSULIN GL300 UNIT/1 (04:52)
[2024-08-14] MEDS ORDERED: MIDODRINE HCL5 MG PO (04:56)
[2024-08-14] MEDS ORDERED: B-121000 MC1 PO (04:58)
[2024-08-14] MEDS ORDERED: TRADJENTA5 MG PO (04:58)
[2024-08-14 06:57] LABS: BASOPHILS % 0.1 % (0.0-1.0); EOSINOPHILS # (AUTO) 0.2 (0.0-0.4); EOSINOPHILS % 1.4 % (0.0-6.0); HEMATOCRIT 34.8 % (38.2-49.6); HEMOGLOBIN 11.1 g/dL (14.0-18.0); LYMPHOCYTES % 6.2 % (18.0-39.1); MEAN CORPUSCULAR HEMOGLOBIN 30.3 pg (28-32); MEAN CORPUSCULAR HGB CONC 31.9 g/dL (31-35); MEAN CORPUSCULAR VOLUME 95.1 fL (81-99); MONOCYTES # (AUTO) 1.2 (0.2-0.8); MONOCYTES % 7.4 % (4.4-11.3); NEUTROPHILS # (AUTO) 13.4 (2.1-6.9); NEUTROPHILS % 84.2 % (38.7-80.0); PLATELET COUNT 135 x10e3/uL (140-360); RED BLOOD COUNT 3.66 x10e6/uL (4.3-5.7); RED CELL DISTRIBUTION WIDTH 12.9 % (11.7-14.4); WHITE BLOOD COUNT 15.91 x10e3/uL (4.8-10.8)
[2024-08-14] MEDS ORDERED: ACETAMINOPHEN 325 MG TAB PO PRN (07:30)
[2024-08-14 07:55] LABS: ALBUMIN 2.8 g/dL (3.5-5.0); ALBUMIN/GLOBULIN RATIO 0.7 (0.8-2.0); ANION GAP 16.8 mmol/L (8-16); BILIRUBIN,TOTAL 1.3 mg/dL (0.2-1.2); CALCIUM 8.8 mg/dL (8.4-10.2); CHOL/HDL RATIO 4.4 (3.9-4.7); CREATININE, SERUM 2.87 mg/dL (0.72-1.25); MAGNESIUM 1.6 MG/DL (1.3-2.1); PHOSPHORUS 2.5 MG/DL (2.3-4.7); POTASSIUM 3.8 mmol/L (3.5-5.1); TOTAL PROTEIN 6.6 g/dL (6.5-8.1)
[2024-08-14 08:16] LABS: FREE T4 (FREE THYROXINE) 1.14 ng/dL (0.8-1.8); THYROID STIMULATING HORMONE 0.057 uIU/mL (0.350-4.940)
[2024-08-14] MEDS: DOCUSATE SODIUM 100 MG CAP PO SCH (09:00)
[2024-08-14] MEDS ORDERED: VITAMIN D350 MCG PO (14:14)
[2024-08-14] MEDS: SODIUM CHLORIDE 0.9% 1000ML 1,000 ML IV SCH (17:00)
[2024-08-14] MEDS ORDERED: SODIUM CHLORIDE 0.9% 1000ML 1,000 ML IV SCH (20:15)
[2024-08-14 20:36] LABS: CREATININE,URINE RANDOM 96.54 mg/dL (63-166); TOTAL PROTEIN, URINE 33.1 mg/dL (1-14)
[2024-08-15] VITALS (9 sets, daily range): BP systolic 125–174; BP diastolic 52–83; PULSE 68–96; RESP 18–22; TEMP 97–99.7; O2SAT 94–98
[2024-08-15] MEDS: ONDANSETRON HCL INJ 2MG/ML 2ML 2 MG/ML VIAL IV PRN (00:43)
[2024-08-15 06:48] LABS: ANION GAP 14.8 mmol/L (8-16); CALCIUM 8.6 mg/dL (8.4-10.2); CREATININE, SERUM 1.96 mg/dL (0.72-1.25); POTASSIUM 3.8 mmol/L (3.5-5.1)
[2024-08-15] MEDS ORDERED: IOPAMIDOL 370 MG/ML 100 ML INFUS..BTL INJ ONE (17:13)
[2024-08-15] MEDS: SODIUM CHLORIDE 0.9% 1000ML 1,000 ML IV ONE (21:01)
[2024-08-15] MEDS: HYDRALAZINE HCL 20 MG/ML VIAL IV PRN (21:10)
[2024-08-16] VITALS (10 sets, daily range): BP systolic 120–173; BP diastolic 55–69; PULSE 84–95; RESP 18–20; TEMP 97.7–98.6; O2SAT 95–100
[2024-08-16] MEDS: CEFTRIAXONE 1 GM VIAL IM ONE (01:40)
[2024-08-16 06:52] LABS: BASOPHILS % 0.2 % (0.0-1.0); EOSINOPHILS # (AUTO) 0.3 (0.0-0.4); EOSINOPHILS % 2.9 % (0.0-6.0); HEMATOCRIT 32.4 % (38.2-49.6); HEMOGLOBIN 10.4 g/dL (14.0-18.0); LYMPHOCYTES # (AUTO) 0.9 (1.0-3.2); LYMPHOCYTES % 9.9 % (18.0-39.1); MEAN CORPUSCULAR HEMOGLOBIN 29.3 pg (28-32); MEAN CORPUSCULAR HGB CONC 32.1 g/dL (31-35); MEAN CORPUSCULAR VOLUME 91.3 fL (81-99); MONOCYTES # (AUTO) 0.9 (0.2-0.8); MONOCYTES % 9.3 % (4.4-11.3); NEUTROPHILS # (AUTO) 7.3 (2.1-6.9); NEUTROPHILS % 76.9 % (38.7-80.0); PLATELET COUNT 174 x10e3/uL (140-360); RED BLOOD COUNT 3.55 x10e6/uL (4.3-5.7); RED CELL DISTRIBUTION WIDTH 13.1 % (11.7-14.4); WHITE BLOOD COUNT 9.45 x10e3/uL (4.8-10.8)
[2024-08-16 07:06] LABS: ANION GAP 15.9 mmol/L (8-16); CALCIUM 8.4 mg/dL (8.4-10.2); CREATININE, SERUM 1.74 mg/dL (0.72-1.25); POTASSIUM 3.9 mmol/L (3.5-5.1)
[2024-08-16] MEDS ORDERED: DEXTROSE 50% SYRINGE 50 ML IV PRN (12:45)
[2024-08-16 12:51] LABS: CLARITY,URINE CLEAR (CLEAR); COLOR,URINE YELLOW (YELLOW); PH,URINE 5.5 (5 - 7)
[2024-08-16 12:52] LABS: BILIRUBIN,URINE NEGATIVE (NEGATIVE); GLUCOSE, URINE NEGATIVE (NEGATIVE); KETONES,URINE TRACE (NEGATIVE); LEUKOCYTE ESTERASE ,URINE NEGATIVE (NEGATIVE); NITRITE,URINE NEGATIVE (NEGATIVE); PROTEIN,URINE DIPSTICK 1+ (NEGATIVE); URINE UROBILINOGEN 1 mg/dL (0.2 - 1)
[2024-08-16 12:58] LABS: RBC,URINE 0-5 /HPF (0-5); WBC,URINE (MAN) 0-5 /HPF (0-5)
[2024-08-16 12:59] LABS: BACTERIA,URINE MANY /HPF; EPITHELIAL CELLS,URINE RARE /LPF
[2024-08-16] MEDS: CYANOCOBALAMIN 1,000 MCG TAB PO SCH (13:44)
[2024-08-16] MEDS: SODIUM CHLORIDE 0.9% 1000ML 1,000 ML IV SCH (17:00)
[2024-08-17] VITALS (10 sets, daily range): BP systolic 114–175; BP diastolic 46–90; PULSE 72–98; RESP 16–20; TEMP 97.6–98.6; O2SAT 98–100
[2024-08-17 07:45] LABS: ANION GAP 16.2 mmol/L (8-16); CALCIUM 8.8 mg/dL (8.4-10.2); CREATININE, SERUM 1.65 mg/dL (0.72-1.25); POTASSIUM 4.2 mmol/L (3.5-5.1)
[2024-08-18] VITALS (10 sets, daily range): BP systolic 101–177; BP diastolic 55–76; PULSE 85–100; RESP 16–21; TEMP 97–98.2; O2SAT 97–100
[2024-08-18] MEDS: NON-FORMULARY MEDICATION (Linagliptin (Tradjenta) 5 MG) PO SCH (09:00)
[2024-08-18 13:33] LABS: BASOPHILS % 0.4 % (0.0-1.0); EOSINOPHILS # (AUTO) 0.3 (0.0-0.4); EOSINOPHILS % 3.8 % (0.0-6.0); HEMOGLOBIN 10.5 g/dL (14.0-18.0); LYMPHOCYTES # (AUTO) 1.2 (1.0-3.2); LYMPHOCYTES % 14.1 % (18.0-39.1); MEAN CORPUSCULAR HEMOGLOBIN 29.8 pg (28-32); MEAN CORPUSCULAR HGB CONC 32.8 g/dL (31-35); MEAN CORPUSCULAR VOLUME 90.9 fL (81-99); MONOCYTES # (AUTO) 0.8 (0.2-0.8); MONOCYTES % 9.2 % (4.4-11.3); NEUTROPHILS # (AUTO) 5.8 (2.1-6.9); NEUTROPHILS % 70.4 % (38.7-80.0); PLATELET COUNT 220 x10e3/uL (140-360); RED BLOOD COUNT 3.52 x10e6/uL (4.3-5.7); RED CELL DISTRIBUTION WIDTH 12.9 % (11.7-14.4); WHITE BLOOD COUNT 8.25 x10e3/uL (4.8-10.8)
[2024-08-18 13:50] LABS: ANION GAP 16.1 mmol/L (8-16); CALCIUM 9.2 mg/dL (8.4-10.2); CREATININE, SERUM 1.73 mg/dL (0.72-1.25); POTASSIUM 4.1 mmol/L (3.5-5.1)
[2024-08-19] VITALS (9 sets, daily range): BP systolic 122–150; BP diastolic 58–76; PULSE 79–104; RESP 16–18; TEMP 97.8–99; O2SAT 95–100
[2024-08-20] VITALS (12 sets, daily range): BP systolic 96–146; BP diastolic 51–61; PULSE 73–103; RESP 16–22; TEMP 97.4–98.6; O2SAT 95–100
[2024-08-20] MEDS ORDERED: CITALOPRAM HBR20 MG PO (05:45)
[2024-08-20] MEDS ORDERED: GABAPENTIN400 MG PO (05:45)
[2024-08-20] MEDS ORDERED: CARVEDILOL3.125 MG PO (05:45)
[2024-08-20] MEDS ORDERED: TYLENOL325 MG PO (05:45)
[2024-08-20] MEDS ORDERED: LISINOPRIL2.5 MG PO (05:45)
[2024-08-20 06:14] LABS: BASOPHILS % 0.4 % (0.0-1.0); EOSINOPHILS # (AUTO) 0.3 (0.0-0.4); EOSINOPHILS % 4.5 % (0.0-6.0); HEMATOCRIT 32.2 % (38.2-49.6); HEMOGLOBIN 10.2 g/dL (14.0-18.0); LYMPHOCYTES # (AUTO) 1.3 (1.0-3.2); LYMPHOCYTES % 17.5 % (18.0-39.1); MEAN CORPUSCULAR HEMOGLOBIN 29.8 pg (28-32); MEAN CORPUSCULAR HGB CONC 31.7 g/dL (31-35); MEAN CORPUSCULAR VOLUME 94.2 fL (81-99); MONOCYTES # (AUTO) 0.8 (0.2-0.8); MONOCYTES % 10.2 % (4.4-11.3); NEUTROPHILS # (AUTO) 4.9 (2.1-6.9); NEUTROPHILS % 64.6 % (38.7-80.0); PLATELET COUNT 195 x10e3/uL (140-360); RED BLOOD COUNT 3.42 x10e6/uL (4.3-5.7); RED CELL DISTRIBUTION WIDTH 12.7 % (11.7-14.4); WHITE BLOOD COUNT 7.56 x10e3/uL (4.8-10.8)
[2024-08-20 06:45] LABS: ANION GAP 13.4 mmol/L (8-16); CALCIUM 8.7 mg/dL (8.4-10.2); CREATININE, SERUM 1.52 mg/dL (0.72-1.25); MAGNESIUM 1.4 MG/DL (1.3-2.1); POTASSIUM 4.4 mmol/L (3.5-5.1)
[2024-08-20] MEDS ORDERED: LIDOCAINE HCL 2% LOCAL INJ 5 ML SDV VIAL INJ ONE (08:09)
[2024-08-20] MEDS ORDERED: ONDANSETRON HCL INJ 2MG/ML 2ML 2 MG/ML VIAL ONE (08:09)
[2024-08-20] MEDS ORDERED: MIDAZOLAM HCL 2 MG/2 ML VIAL ONE (08:09)
[2024-08-20] MEDS ORDERED: FENTANYL CITRATE/PF 100MCG/2 ML INJ ONE (08:09)
[2024-08-20] MEDS ORDERED: PROPOFOL IV EMULSION 10 MG/ML 20 ML VIAL ONE (08:09)
[2024-08-20] MEDS ORDERED: GLYCOPYRROLATE INJ 0.2 MG/ML VIAL ONE (08:12)
[2024-08-20] MEDS ORDERED: NEOSTIGMINE 1 MG/ML 10ML VIAL ONE (08:12)
[2024-08-20] MEDS ORDERED: PHENYLEPHRINE HCL 1% 10 MG/ML VIAL ONE (08:54)
[2024-08-20] MEDS ORDERED: SODIUM CHLORIDE 0.9% 100 ML ONE (08:55)
[2024-08-20] MEDS: FENTANYL CITRATE/PF 100MCG/2 ML INJ ONE (10:48)
[2024-08-20] MEDS: Morphine 4mg INJECTION 4 MG/ML INJ IV PRN (11:36)
[2024-08-20] MEDS: SODIUM CHLORIDE 0.9% 1000ML 1,000 ML IV SCH (14:11)
[2024-08-21] VITALS (9 sets, daily range): BP systolic 114–132; BP diastolic 42–92; PULSE 74–95; RESP 16–20; TEMP 97.8–98.6; O2SAT 96–100
[2024-08-21 05:45] LABS: BASOPHILS % 0.3 % (0.0-1.0); EOSINOPHILS # (AUTO) 0.1 (0.0-0.4); EOSINOPHILS % 1.2 % (0.0-6.0); HEMATOCRIT 31.3 % (38.2-49.6); HEMOGLOBIN 10.2 g/dL (14.0-18.0); LYMPHOCYTES # (AUTO) 1.3 (1.0-3.2); LYMPHOCYTES % 10.9 % (18.0-39.1); MEAN CORPUSCULAR HGB CONC 32.6 g/dL (31-35); MEAN CORPUSCULAR VOLUME 92.1 fL (81-99); MONOCYTES # (AUTO) 1.1 (0.2-0.8); MONOCYTES % 9.2 % (4.4-11.3); NEUTROPHILS % 77.2 % (38.7-80.0); PLATELET COUNT 186 x10e3/uL (140-360); RED CELL DISTRIBUTION WIDTH 12.7 % (11.7-14.4); WHITE BLOOD COUNT 11.69 x10e3/uL (4.8-10.8)
[2024-08-21 06:24] LABS: ALBUMIN 2.8 g/dL (3.5-5.0); ALBUMIN/GLOBULIN RATIO 0.9 (0.8-2.0); ANION GAP 11.4 mmol/L (8-16); BILIRUBIN,TOTAL 0.6 mg/dL (0.2-1.2); CALCIUM 8.2 mg/dL (8.4-10.2); CREATININE, SERUM 1.93 mg/dL (0.72-1.25); POTASSIUM 4.4 mmol/L (3.5-5.1); TOTAL PROTEIN 5.9 g/dL (6.5-8.1)
[2024-08-22] VITALS (11 sets, daily range): BP systolic 117–183; BP diastolic 42–103; PULSE 69–103; RESP 17–20; TEMP 97.3–98.9; O2SAT 94–100
[2024-08-22] MEDS: SODIUM CHLORIDE 0.9% 1000ML 1,000 ML IV SCH (00:10)
[2024-08-22] MEDS: LORAZEPAM INJ 2 MG/ML VIAL IV PRN (00:11)
[2024-08-22 06:18] LABS: BASOPHILS % 0.2 % (0.0-1.0); EOSINOPHILS # (AUTO) 0.3 (0.0-0.4); EOSINOPHILS % 2.3 % (0.0-6.0); HEMATOCRIT 29.3 % (38.2-49.6); HEMOGLOBIN 9.7 g/dL (14.0-18.0); LYMPHOCYTES # (AUTO) 1.2 (1.0-3.2); LYMPHOCYTES % 10.2 % (18.0-39.1); MEAN CORPUSCULAR HGB CONC 33.1 g/dL (31-35); MEAN CORPUSCULAR VOLUME 90.7 fL (81-99); MONOCYTES # (AUTO) 0.9 (0.2-0.8); MONOCYTES % 7.9 % (4.4-11.3); NEUTROPHILS # (AUTO) 8.8 (2.1-6.9); NEUTROPHILS % 78.3 % (38.7-80.0); PLATELET COUNT 168 x10e3/uL (140-360); RED BLOOD COUNT 3.23 x10e6/uL (4.3-5.7); RED CELL DISTRIBUTION WIDTH 12.6 % (11.7-14.4); WHITE BLOOD COUNT 11.28 x10e3/uL (4.8-10.8)
[2024-08-22 06:41] LABS: ALBUMIN 2.7 g/dL (3.5-5.0); ALBUMIN/GLOBULIN RATIO 0.9 (0.8-2.0); ANION GAP 13.3 mmol/L (8-16); BILIRUBIN,TOTAL 0.7 mg/dL (0.2-1.2); CREATININE, SERUM 1.55 mg/dL (0.72-1.25); POTASSIUM 4.3 mmol/L (3.5-5.1); TOTAL PROTEIN 5.7 g/dL (6.5-8.1)
[2024-08-23] VITALS (7 sets, daily range): BP systolic 113–149; BP diastolic 48–66; PULSE 68–89; RESP 18–21; TEMP 97.2–98.6; O2SAT 93–99
[2024-08-23 06:06] LABS: BASOPHILS % 0.2 % (0.0-1.0); EOSINOPHILS # (AUTO) 0.2 (0.0-0.4); EOSINOPHILS % 2.1 % (0.0-6.0); HEMATOCRIT 28.3 % (38.2-49.6); HEMOGLOBIN 9.1 g/dL (14.0-18.0); LYMPHOCYTES # (AUTO) 1.2 (1.0-3.2); LYMPHOCYTES % 10.7 % (18.0-39.1); MEAN CORPUSCULAR HEMOGLOBIN 30.1 pg (28-32); MEAN CORPUSCULAR HGB CONC 32.2 g/dL (31-35); MEAN CORPUSCULAR VOLUME 93.7 fL (81-99); MONOCYTES # (AUTO) 0.9 (0.2-0.8); MONOCYTES % 7.4 % (4.4-11.3); NEUTROPHILS % 78.7 % (38.7-80.0); PLATELET COUNT 163 x10e3/uL (140-360); RED BLOOD COUNT 3.02 x10e6/uL (4.3-5.7); RED CELL DISTRIBUTION WIDTH 12.4 % (11.7-14.4); WHITE BLOOD COUNT 11.47 x10e3/uL (4.8-10.8)
[2024-08-23 06:29] LABS: ANION GAP 12.1 mmol/L (8-16); CALCIUM 8.1 mg/dL (8.4-10.2); CREATININE, SERUM 1.35 mg/dL (0.72-1.25); POTASSIUM 4.1 mmol/L (3.5-5.1)
[2024-08-23 06:52] LABS: FERRITIN 117.04 ng/mL (21.81-274.66)
[2024-08-23 07:05] LABS: FOLATE 13.6 ng/mL (7.0-15.4)
[2024-08-23] MEDS: ASCORBIC ACID 500 MG TAB PO SCH (08:25)
[2024-08-23] MEDS: MAGNESIUM SULFATE 2GM/50ML 50 ML IV ONE ×2 (08:25→15:49)
[2024-08-23] MEDS: IRON SUCROSE 100 MG in SODIUM CHLORIDE 0.9% 100 ML IV SCH (08:25)
[2024-08-24] VITALS (7 sets, daily range): BP systolic 128–171; BP diastolic 49–99; PULSE 74–96; RESP 18–20; TEMP 97.8–98.9; O2SAT 95–100
[2024-08-24] MEDS: POLYETHYLENE GLYCOL 3350 17 GM PACK PO PRN (21:38)
[2024-08-25] VITALS (7 sets, daily range): BP systolic 122–157; BP diastolic 51–74; PULSE 72–87; RESP 17–20; TEMP 98–99.7; O2SAT 96–100
[2024-08-25] MEDS: HALOPERIDOL LACTATE 5 MG/ML VIAL IV ONE (02:45)
[2024-08-26] VITALS (8 sets, daily range): BP systolic 112–136; BP diastolic 53–70; PULSE 72–89; RESP 17–21; TEMP 98.1–98.8; O2SAT 94–100
[2024-08-26 06:01] LABS: ANION GAP 14.3 mmol/L (8-16); CALCIUM 8.6 mg/dL (8.4-10.2); CREATININE, SERUM 1.39 mg/dL (0.72-1.25); MAGNESIUM 1.5 MG/DL (1.3-2.1); POTASSIUM 4.3 mmol/L (3.5-5.1)
[2024-08-26] MEDS: MAGNESIUM OXIDE 400 MG TAB PO ONE (17:40)
[2024-08-27 00:48] VITALS: BP 115/64; PULSE 89; RESP 18; TEMP 98.8; O2SAT 99
[2024-08-27 08:20] VITALS: PULSE 91; RESP 18; O2SAT 100
[2024-08-27 08:30] VITALS: BP 110/59; PULSE 75; RESP 18; O2SAT 100
== END 2024-08-27 08:40 | disposition home health service (06) | DRG 417 ==
LOC: ER 17:50 → ERHOLD 20:03 → MED/SURG3 23:20
PROVIDERS: ADMIT Internal Medicine; ATTEND Internal Medicine
PROC: 0FT44ZZ Resection of Gallbladder, Percutaneous Endoscopic Approach (ICD-10-PCS; principal; 2024-08-20 08:28)
PROC: 0T9B70Z Drainage of Bladder with Drainage Device, Via Natural or Artificial Opening (ICD-10-PCS; 2024-08-21)
DX: K80.00 Calculus of gallbladder with acute cholecystitis without obstruction (principal); G93.41 Metabolic encephalopathy; N17.9 Acute kidney failure, unspecified; N28.0 Ischemia and infarction of kidney; E86.0 Dehydration; R29.6 Repeated falls; E11.22 Type 2 diabetes mellitus with diabetic chronic kidney disease; I12.9 Hypertensive chronic kidney disease with stage 1 through stage 4 chronic kidney disease, or unspecified chronic kidney disease; N18.32 Chronic kidney disease, stage 3b; Z79.4 Long term (current) use of insulin; Z71.3 Dietary counseling and surveillance; Z68.26 Body mass index [BMI] 26.0-26.9, adult; S09.90XA Unspecified injury of head, initial encounter; W19.XXXA Unspecified fall, initial encounter; Y92.230 Patient room in hospital as the place of occurrence of the external cause; R33.9 Retention of urine, unspecified; E83.42 Hypomagnesemia; G30.9 Alzheimer's disease, unspecified; F02.80 Dementia in other diseases classified elsewhere, unspecified severity, without behavioral disturbance, psychotic disturbance, mood disturbance, and anxiety; E11.69 Type 2 diabetes mellitus with other specified complication; E78.5 Hyperlipidemia, unspecified; N40.0 Benign prostatic hyperplasia without lower urinary tract symptoms; R26.89 Other abnormalities of gait and mobility; R53.81 Other malaise; N20.0 Calculus of kidney; R00.0 Tachycardia, unspecified; Y92.009 Unspecified place in unspecified non-institutional (private) residence as the place of occurrence of the external cause; Z79.84 Long term (current) use of oral hypoglycemic drugs; W18.39XA Other fall on same level, initial encounter; Z87.891 Personal history of nicotine dependence; Z79.899 Other long term (current) drug therapy
CPT/HCPCS: 36415; 70450; 71045; 74170; 76770; 78227; 80048; 80053; 80061; 81001; 82550; 82570; 82607; 82728; 82746; 82948; 83036; 83540; 83735; 84100; 84156; 84439; 84443; 84466; 84484; 85025; 85045; 87086; 88304; 93005; 94799; 99252; 99284; A9537; C1766; J0360; J0690; J0696; J1630; J1756; J2003; J2060; J2250; J2270; J2371; J2405; J2710; J3475; J7030; J7050; Q9967